=== PATIENT | male | born 1955 | race Caucasian/White ===

== ENCOUNTER → 2019-06-04 16:21 | Outpatient (CLI) | payer BC, SELFPAY ==
[2019-06-04 17:56] LABS: Add Manual Diff / Slide Review NO; Basophils Absolute Auto 0 /uL (0-100); Basophils Percent Auto 0.8 % (0-2); Eosinophils Absolute Auto 100 /uL (0-450); Eosinophils Percent Auto 2.1 % (2-4); Hematocrit 40.3 % (41-53); Hemoglobin 13.5 g/dL (13.5-17.5); Lymphocytes Absolute Auto 2100 /uL (1100-4500); Lymphocytes Percent Auto 37.8 % (25-40); Mean Corpuscular HGB Conc 33.5 % (30-36); Mean Corpuscular Hemoglobin 31.2 PG (26-34); Mean Corpuscular Volume 92.9 fL (80-100); Monocytes Absolute Auto 400 /uL (0-900); Monocytes Percent Auto 6.8 % (3-14); Neutrophils Absolute Auto 2900 /uL (1500-7000); Neutrophils Percent Auto 52.5 % (50-75); Platelet Count 233 X10^3/uL (150-400); Red Blood Cell Count 4.34 X10^6/uL (4.5-5.9); Red Cell Distribution Width 13.7 % (11.6-14.8); White Blood Cell Count 5.5 X10^3/uL (4.5-11.0)
[2019-06-04 18:22] LABS: Alanine Aminotransferase 46 IU/L (21-72); Albumin 4.4 g/dL (3.5-5.0); Albumin Globulin Ratio 1.2 (1.0-2.8); Alkaline Phosphatase 45 U/L (38-126); Aspartate Aminotransferase 70 IU/L (17-59); BUN Creatinine Ratio 26.3 (6-22); Blood Urea Nitrogen 21 mg/dL (9-20); Calcium 9.5 mg/dL (8.4-10.2); Carbon Dioxide 29 mmol/L (22-32); Chloride 103 mmol/L (98-107); Estimated Glomerular Filt Rate > 60.0 mL/min (>60); Globulin 3.7 g/dL (1.7-4.1); Glucose 98 mg/dL (80-110); HEMOLYSIS < 15 (0-50); Potassium 3.6 mmol/L (3.4-5.1); Sodium 140 mmol/L (137-145); Total Protein 8.1 g/dL (6.3-8.2)
[2019-06-06 13:50] LABS: Free Kappa Light Chain 6.9 mg/L (3.3-19.4); Free Kappa/ Lambda Ratio 0.61 (0.26-1.65); Free Lambda 11.4 mg/L (5.7-26.3)
[2019-06-07 12:13] LABS: Abnormal Protein Band 1 0.7 g/dL (NONE DETECTED); Albumin 4.2 g/dL (3.8-4.8); Alpha 1 Globulin 0.2 g/dL (0.2-0.3); Alpha 2 Globulin 0.6 g/dL (0.5-0.9); Beta 1 Globulin 0.4 g/dL (0.4-0.6); Gamma Globulin 1.9 g/dL (0.8-1.7); Protein, Total 7.6 g/dL (6.1-8.1)
== END ==
PROVIDERS: PCP Family Medicine
DX: D47.2 Monoclonal gammopathy (principal)
CPT/HCPCS: 36415; 80053; 82784; 83883; 84155; 84165; 85025; 86334

== ENCOUNTER → 2020-08-14 14:57 | Outpatient (CLI) | payer MEDICARE, OTHER, SELFPAY ==
[2020-08-15 15:50] LABS: COVID19 Sendout Not Detected (Not Detect)
== END ==
PROVIDERS: PCP Family Medicine; Visit Provider Physician Assistant
DX: Z11.59 Encounter for screening for other viral diseases (principal)
CPT/HCPCS: 87635

== ENCOUNTER → 2022-03-03 11:27 | Outpatient (CLI) | payer MEDICARE, OTHER, SELFPAY ==
[2022-03-03 12:20] LABS: COVID19 -Nasal RAPID Negative (Negative)
== END ==
PROVIDERS: PCP Family Medicine; Visit Provider Family Medicine Sleep Medicine
DX: Z20.822 Contact with and (suspected) exposure to COVID-19 (principal)
CPT/HCPCS: 87635; C9803

== ENCOUNTER 2022-03-06 13:17 | Day surgery (SDC) | payer MEDICARE, OTHER, SELFPAY ==
[2022-03-06 13:54] VITALS: BMI 22.8
[2022-03-06 14:14] VITALS: BP 153/90; PULSE 66; RESP 16; TEMP 36.4; O2SAT 99
[2022-03-06] MEDS: SODIUM CHLORIDE 0.9% 1,000 ML 84 ML IV (14:17)
--- NOTE | 2022-03-06 14:27 | PM.HP.1 ---
History of Present Illness History of Present Illness Date Patient Seen: 03/06/22 Time Patient Seen: 14:28 Chief complaint: SDC Narrative: Here for colon cancer screening. Patient History Medical History CIDP (chronic inflammatory demyelinating polyneuropathy) Elevated blood protein Hypertension Family & Social History Social History: household members none Tobacco & Substance use: Smoking Status Never smoker alcohol intake current alcohol intake frequency 0-2 drinks per day Substance Use Type does not use Meds Home Medications and Allergies Home Medications Medication Instructions Recorded Confirmed Type aspirin 81 mg tablet,delayed 81 mg PO DAILY 06/04/19 03/06/22 History release (Aspir-) hydrochlorothiazide 25 mg tablet 25 mg PO DAILY 06/04/19 03/06/22 History immune glob,gamma(IgG) 10 10 g IV QMONTH 06/04/19 03/06/22 History hkea-[id number]-olyh-IgA 0 to 50 mcg/mL IV solution (Gammagard S-D (IgA < 1 mcg/mL)) lisinopril 40 mg tablet 40 mg DAILY 06/04/19 03/06/22 History omeprazole magnesium 20 mg 20 mg DAILY 06/04/19 03/06/22 History tablet,delayed release (Prilosec OTC) amlodipine 10 mg tablet (Norvasc) 10 mg PO DAILY 01/25/22 03/06/22 History Allergies Allergy/AdvReac Type Severity Reaction Status Date / Time No Known Drug Allergies Allergy Verified 03/06/22 13:50 Review of Systems Review of Systems ROS: Yes All systems reviewed with the patient and are negative except as otherwise documented Exam Vital Signs (past 8 hours): - 03/06/22 14:14 Temperature 97.6 F Pulse Rate 66 Respiratory Rate 16 Blood Pressure 153/90 H Pulse Oximetry 99 Oxygen Delivery Method Room Air Const General: cooperative and comfortable Orientation: alert HENMT Head: normocephalic Ears: external ears normal Nose: external nose normal Face and sinus: normal facial exam Mouth: oral mucosae normal Eyes General: appearance normal, both eyes and all related structures Neck Neck: normal visual inspection Chest Chest: normal inspection of the chest Resp Effort & Inspection: normal respiratory effort Cardio Rate: regular rate GI Inspection: normal to inspection Skin General: no rashes or lesions noted and No jaundice Neuro General: patient alert and moves all extremities Cognition: normal cognition Speech: speech normal Extrem General: no pedal edema Psych Appearance: grossly normal Assessment & Plan Assessment & Plan narrative: 66-year-old male reporting for colon cancer screening. Colonoscopy is planned for today. Time Spent With Patient Critical Care time: I spent a total of [] minutes of critical care time on this patient's care today; this time is exclusive of procedural time.
--- NOTE | 2022-03-06 14:29 | PM.PREOP ---
Pre-operative Note COVID-19 COVID-19 status: Negative Result date/Date tested (Pos, Neg/Pending): 03/03/22 Criteria for continued procedure: Possibility delay results in more complex future surgery or treatment Interval Note History & Physical reviewed/Exam performed by Physician: Yes Changes to H&P: No ASA Class (for procedural sedation): II
--- NOTE | 2022-03-06 15:24 | SUR.OPER ---
CECUM AT 1526
--- NOTE | 2022-03-06 15:33 | PM.OP.COLON ---
Operative Date/Time/Diagnoses Date of procedure: 03/06/22 Time of procedure: 15:33 Pre-op diagnosis: Colon cancer screening Post-op diagnosis: same Procedure & Clinicians Study performed: Colonoscopy Same procedure as scheduled: Yes Indications: Colon cancer screening Surgeon: Panda Zapata Procedure Notes SCOAP/Timeout: Done Procedure in detail: After the risks and benefits were explained, written and verbal informed consent was obtained. The patient was brought into the procedure room and placed into the left lateral decubitus position. Please see nurse glass forming crew member notes for sedation details. Digital rectal examination was accomplished. The scope was introduced into the patient and advanced under direct visualization to the cecum as identified by the appendiceal orifice and ileocecal valve. The scope was slowly withdrawn to carefully examine the mucosa for any defects or lesions. Comprehensive imaging was accomplished throughout the rectum including the dentate line. The colon was decompressed, the scope was then removed from the patient who tolerated the procedure well. Bowel prep adequate Adult colonoscope Scope withdrawal time: 6 minutes Sedation minutes: 21 Specimen(s): none sent Complications: none Impression: Patient had a moderately tortuous sigmoid that rendered defecation challenging. No significant polyps mass lesions or inflammatory features identified throughout. Endoscopic diagnosis: Visually normal colonoscopy to cecum Post-procedure Recommendations: Colonoscopy in 10 years Plan for aftercare: Repeat colonoscopy 10 years time sooner should symptoms warrant an earlier exam. Disposition: PACU
[2022-03-06 15:37] VITALS: BP 130/77; PULSE 62; RESP 13; TEMP 36.3; O2SAT 98
[2022-03-06 15:47] VITALS: BP 127/75; PULSE 61; RESP 14; O2SAT 95
[2022-03-06 15:51] VITALS: BP 130/81; PULSE 63; RESP 14; TEMP 36.3; O2SAT 97
[2022-03-06 15:56] VITALS: BP 130/81; PULSE 59; RESP 14; O2SAT 99
== END 2022-03-06 16:08 | disposition home or self-care (01) ==
PROVIDERS: PCP Family Medicine; Referring Provider Internal Medicine Gastroenterology; Visit Provider Internal Medicine Gastroenterology
PROC: 0DJD8ZZ Inspection of Lower Intestinal Tract, Via Natural or Artificial Opening Endoscopic (ICD-10-PCS; CPT 45378; principal; 2022-03-06 14:30)
DX: Z12.11 Encounter for screening for malignant neoplasm of colon (principal); I10 Essential (primary) hypertension; G61.81 Chronic inflammatory demyelinating polyneuritis
CPT/HCPCS: G0121; J2704

== ENCOUNTER → 2023-01-10 10:31 | Outpatient (CLI) | payer MEDICARE, OTHER, SELFPAY ==
[2023-01-10 10:49] LABS: Hematocrit 39.4 % (41-53); Hemoglobin 13.5 g/dL (13.5-17.5); Mean Corpuscular HGB Conc 34.2 % (30-36); Mean Corpuscular Hemoglobin 29.6 PG (26-34); Mean Corpuscular Volume 86.4 fL (80-100); Platelet Count 243 X10^3/uL (150-400); Red Blood Cell Count 4.56 X10^6/uL (4.5-5.9); Red Cell Distribution Width 13.3 % (11.6-14.8); White Blood Cell Count 4.6 X10^3/uL (4.5-11.0)
[2023-01-10 11:02] LABS: Alanine Aminotransferase 37 IU/L (<50); Albumin 4.5 g/dL (3.5-5.0); Alkaline Phosphatase 50 U/L (38-126); Aspartate Aminotransferase 40 IU/L (17-59); BUN Creatinine Ratio 24.4 (6-22); Bilirubin Total 1.2 mg/dL (0.2-1.3); Blood Urea Nitrogen 20 mg/dL (9-20); Calcium 9.6 mg/dL (8.4-10.2); Carbon Dioxide 36 mmol/L (22-32); Chloride 98 mmol/L (98-107); Estimated Glomerular Filt Rate > 60 mL/min (>60); Globulin 4.6 g/dL (1.7-4.1); Glucose 72 mg/dL (80-110); HEMOLYSIS < 15 (0-50); Potassium 3.8 mmol/L (3.4-5.1); Sodium 142 mmol/L (137-145); Total Protein 9.1 g/dL (6.3-8.2)
[2023-01-10 12:19] LABS: TSH w/ Reflex to FT4 1.45 uIU/mL (0.47-4.68)
== END ==
PROVIDERS: PCP Family Medicine; Referring Provider Family Medicine; Visit Provider Family Medicine
DX: D64.9 Anemia, unspecified (principal); I10 Essential (primary) hypertension
CPT/HCPCS: 36415; 80053; 84443; 85027

== ENCOUNTER 2025-10-01 11:00 | Emergency (ER) | payer MEDICARE, OTHER, SELFPAY ==
[2025-10-01] VITALS (31 sets, daily range): BP systolic 96–126; BP diastolic 66–86; PULSE 70–141; RESP 9–21; TEMP 36.7; O2SAT 84–100
--- NOTE | 2025-10-01 11:08 | ED_ITS ---
HPI - Chest Pain
--- NOTE | 2025-10-01 11:08 | ED.CHESTPAIN ---
HPI - Chest Pain General Chief Complaint: Arrhythmia/Palpitations Stated Complaint: Irregular heart beat, Low blood pressure Time Seen by Provider: 10/01/25 11:08 History of Present Illness HPI narrative: 70-year-old gentleman history of CIDP, hypertension, presents with low blood pressure, elevated heart rate Sunday evening for which he has stopped taking the lisinopril but noticed use still having heart palpitations and feeling lightheaded. Denies any chest pain, shortness of breath, leg pain, leg swelling, recent travel, dyspnea on exertion, fever, chills, body aches, cough, sore throat, nausea, vomiting, diarrhea, abdominal pain. Other than what is stated 14 point review system is negative. Related Data Home Medications ?Medication ?Instructions ?Recorded ?Confirmed aspirin 81 mg tablet,delayed 81 mg PO DAILY 06/04/19 03/06/23 release (Aspir-) hydrochlorothiazide 25 mg tablet 25 mg PO DAILY 06/04/19 03/06/23 immune glob,gamma(IgG) 10 90 g IV QMONTH 06/04/19 03/06/23 [id number]-[id number]-IgA 0 to 50 mcg/mL IV solution (Gammagard S-D (IgA < 1 mcg/mL)) lisinopril 40 mg tablet 40 mg DAILY 06/04/19 03/06/23 omeprazole magnesium 20 mg 20 mg DAILY 06/04/19 03/06/23 tablet,delayed release (Prilosec OTC) amlodipine 10 mg tablet (Norvasc) 10 mg PO DAILY 01/25/22 03/06/23 Previous Rx's ?Medication ?Instructions ?Recorded apixaban 5 mg (74 tabs) tablets in See Rx Instructions PO .COMPLEX 10/01/25 a dose pack (FixyaquideaForge DVT-PE Treat #74 ea 30D Start) metoprolol tartrate 25 mg tablet 25 mg PO BID #60 tabs 10/01/25 Allergies Allergy/AdvReac Type Severity Reaction Status Date / Time No Known Drug Allergies Allergy Verified 10/01/25 11:08 Review of Systems Review of Systems ROS Unobtainable: All systems reviewed & are unremarkable except as noted in HPI and below Patient History Medical History CIDP (chronic inflammatory demyelinating polyneuropathy) Elevated blood protein Hypertension Social History household members: none Smoking Status: Unknown if ever smoked alcohol intake: current alcohol intake frequency: 0-2 drinks per day Exam Narrative Exam Narrative: GENERAL: [70] year old patient appears stated age. Well-developed patient, in mild distress. HEAD: Atraumatic. Normocephalic. EYES: Pupils equal round and reactive. Extraocular motions intact. No scleral icterus. No injection or drainage. ENT: Nose without bleeding, purulent drainage. Throat without erythema, tonsillar hypertrophy or exudate. Airway patent. NECK: Trachea midline. Non tender CARDIOVASCULAR: Tachycardia irregularly irregular rate and rhythm without murmurs, gallops, or rubs. RESPIRATORY: Clear to auscultation. Breath sounds equal bilaterally. No wheezes, rales, or rhonchi. GASTROINTESTINAL: Abdomen soft, non-tender, nondistended. EXTREMITIES: No edema or joint tenderness. BACK: Nontender without deformity or crepitance. No flank tenderness. NEURO: AOx3. SKIN: No rash or erythema of visible areas Initial Vital Signs Initial Vital Signs: Vital Signs Temperature 98.1 F 10/01/25 11:00 Pulse Rate 112 H 10/01/25 11:00 Respiratory Rate 18 10/01/25 11:00 Blood Pressure 118/79 10/01/25 11:00 Pulse Oximetry 100 10/01/25 11:00 Oxygen Delivery Method Room Air 10/01/25 11:00 Scores HEART Score Heart Score history: Moderately Suspicious Heart Score EKG: Non-Specific repolarization disturbance Heart Score Age: > or = 65 years old Heart Score risk factors: 1-2 risk factors Heart Score troponin: < or = to normal limit Heart Score Total: 5 Course Orders Ordered: ED Orders 10/01/25 11:11 CT angio chest PE protocol Stat EKG-12 Lead Stat 10/01/25 11:16 Complete Blood Count AUTO DIFF Stat Comprehensive Metabolic Panel Stat Lipase Stat Magnesium Stat NT-proBNP (BNP-Adult 18+) Stat TSH [Thyroid Stimulating Hormone] Stat Troponin I Stat 10/01/25 14:11 EKG-12 Lead Stat 10/01/25 15:04 Troponin I Stat Discontinued Medications Apixaban (Apixaban 5 Mg Tablet) 5 mg PO NOW ONE Stop: 10/01/25 14:57 Last Admin: 10/01/25 15:12 Dose: 5 mg Documented By: GELACIO Aspirin (Aspirin 81 Mg Chew Tab) 324 mg PO NOW ONE Stop: 10/01/25 11:11 Last Admin: 10/01/25 11:24 Dose: 243 mg Documented By: KYLE Diltiazem HCl (Diltiazem 25 Mg/5 Ml Sdv) 25 mg IV NOW ONE Stop: 10/01/25 11:19 Last Admin: 10/01/25 11:24 Dose: 25 mg Documented By: LUPISF Vital Signs Vital signs: Vital Signs - 8 hr 10/01/25 11:00 10/01/25 11:04 10/01/25 11:05 Temperature 98.1 F Pulse Rate 112 H 108 H Respiratory Rate 18 Blood Pressure 118/79 118/79 Pulse Oximetry 100 98 Oxygen Delivery Method Room Air 10/01/25 11:05 10/01/25 11:23 10/01/25 11:23 Temperature Pulse Rate 137 H 136 H Respiratory Rate 20 Blood Pressure 119/81 Pulse Oximetry 99 100 Oxygen Delivery Method 10/01/25 11:24 10/01/25 11:25 10/01/25 11:25 Temperature Pulse Rate 141 H 141 H Respiratory Rate 16 Blood Pressure 119/81 125/86 Pulse Oximetry 100 Oxygen Delivery Method 10/01/25 11:30 10/01/25 11:30 10/01/25 11:35 Temperature Pulse Rate 77 Respiratory Rate 16 Blood Pressure 96/67 106/69 Pulse Oximetry 100 Oxygen Delivery Method 10/01/25 11:35 10/01/25 11:42 10/01/25 11:42 Temperature Pulse Rate 74 77 Respiratory Rate 14 14 Blood Pressure 108/75 Pulse Oximetry 100 100 Oxygen Delivery Method 10/01/25 12:01 10/01/25 12:02 10/01/25 12:02 Temperature Pulse Rate 77 79 Respiratory Rate 17 Blood Pressure 112/68 Pulse Oximetry 84 L 98 Oxygen Delivery Method 10/01/25 12:15 10/01/25 12:15 10/01/25 12:30 Temperature Pulse Rate 70 70 Respiratory Rate 14 14 Blood Pressure 101/70 Pulse Oximetry 99 98 Oxygen Delivery Method 10/01/25 12:30 10/01/25 12:45 10/01/25 12:45 Temperature Pulse Rate 73 Respiratory Rate 12 Blood Pressure 112/75 109/70 Pulse Oximetry 99 Oxygen Delivery Method 10/01/25 13:00 10/01/25 13:00 10/01/25 13:10 Temperature Pulse Rate 78 79 Respiratory Rate 21 18 Blood Pressure 115/75 Pulse Oximetry 97 99 Oxygen Delivery Method 10/01/25 13:10 10/01/25 13:15 10/01/25 13:15 Temperature Pulse Rate 79 Respiratory Rate 17 Blood Pressure 108/66 107/74 Pulse Oximetry 98 Oxygen Delivery Method 10/01/25 13:30 10/01/25 13:30 10/01/25 13:45 Temperature Pulse Rate 78 Respiratory Rate 15 Blood Pressure 110/79 113/82 Pulse Oximetry 99 Oxygen Delivery Method 10/01/25 13:45 10/01/25 14:00 10/01/25 14:00 Temperature Pulse Rate 82 82 Respiratory Rate 14 13 Blood Pressure 102/82 Pulse Oximetry 98 99 Oxygen Delivery Method 10/01/25 14:15 10/01/25 14:15 Temperature Pulse Rate 91 H Respiratory Rate 17 Blood Pressure 107/85 Pulse Oximetry 99 Oxygen Delivery Method MDM - Chest Pain Lab Data 10/01/25 11:16 10/01/25 11:16 Labs: Lab Results 10/01/25 10/01/25 Range/Units 11:16 15:04 WBC 7.2 (4.5-11.0) X10^3/uL RBC 4.53 (4.5-5.9) X10^6/uL Hgb 13.8 (13.5-17.5) g/dL Hct 40.6 L (41-53) % MCV 89.6 (80-100) fL MCH 30.4 (26-34) PG MCHC 33.9 (30-36) % RDW 13.6 (11.6-14.8) % Plt Count 226 (150-400) X10^3/uL Neut % (Auto) 60.8 (50-75) % Lymph % (Auto) 27.7 (25-40) % Barnes % (Auto) 8.2 (3-14) % Eos % (Auto) 2.4 (2-4) % Baso % (Auto) 0.9 (0-2) % Neut # (Auto) 4300 (7602-7714) /uL Lymph # (Auto) 2000 (3510-9357) /uL Barnes # (Auto) 600 (0-900) /uL Eos # (Auto) 200 (0-450) /uL Baso # (Auto) 100 (0-100) /uL Sodium 137 (137-145) mmol/L Potassium 3.6 (3.4-5.1) mmol/L Chloride 100 (98-107) mmol/L Carbon Dioxide 30 (22-32) mmol/L BUN 22 H (9-20) mg/dL Creatinine 0.88 (0.66-1.25) mg/dL Estimated GFR > 60 (>60) mL/min BUN/Creatinine Ratio 25.0 H (6-22) Glucose 103 H (70-99) mg/dL Calcium 9.0 (8.4-10.2) mg/dL Magnesium 1.9 (1.6-2.3) mg/dL Total Bilirubin 1.0 (0.2-1.3) mg/dL AST 47 (17-59) IU/L ALT 47 (<50) IU/L Alkaline Phosphatase 48 (38-126) U/L CK-MB (CK-2) Cancelled Troponin I < 0.012 < 0.012 (0.01-0.034) ng/mL NT-Pro-B Natriuret Pep 2190 H (<125) pg/mL Total Protein 9.4 H (6.3-8.2) g/dL Albumin 4.5 (3.5-5.0) g/dL Globulin 4.9 H (1.7-4.1) g/dL Albumin/Globulin Ratio 0.9 L (1.0-2.8) Lipase 158 (23-300) U/L TSH 1.33 (0.47-4.68) uIU/mL Urine Dip Bedside Urine Glucose Negative Bedside Urine Bilirubin - Negative Bedside Urine Ketone - Negative Urine Specific [place] 1.005 Bedside Urine Occult Blood - Negative Bedside Urine pH 7.5 Bedside Urine Protein - Negative Bedside Urine Urobilinogen - Negative Bedside Urine Nitrite - Negative Bedside Urine Leukocytes - Negative Esterase Imaging Data CT scan - chest: Radiologist's Impression: [address] [id number] [address] Scan Report Signed Patient: Mati Pelaez MR#: [id number] : 1955 Acct:[id number] Age/Sex: 70 / M Date of Service: 10/01/25 Loc: ED Accession Number: [id number] Procedure: CT angio chest PE protocol Ordering Provider: Ashok Delgado D.O. PROCEDURE: CT ANGIO CHEST PE PROTOCOL INDICATIONS: tachycardic/ palpitation TECHNIQUE: After the administration of intravenous contrast, 2 mm thick sections acquired from the pulmonary apices to the posterior costophrenic angles. 3-dimensional maximum intensity projection (MIP) coronal and sagittal reformats were then acquired through the thorax. For radiation dose reduction, the following was used: automated exposure control, adjustment of mA and/or kV according to patient size. COMPARISON: None. FINDINGS: Image quality: Diagnostic. Pulmonary arteries: Pulmonary arteries are normal in size, and demonstrate no intraluminal filling defects to suggest central pulmonary embolism. Lower Neck: No enlarged lymph nodes. Thyroid: No thyroid nodules which require sonographic follow up, per consensus guidelines. Axillae: No enlarged lymph nodes. Chest Wall: Unremarkable. Bones: Unremarkable. Lungs and Pleura: No pneumothorax or pleural effusions. No consolidation or suspicious nodules. Heart: Heart size is normal. No pericardial effusion. Thoracic Vessels: No aortic aneurysm. Mediastinum and Taty: No enlarged lymph nodes. Esophagus: No wall thickening. No hiatal hernia. Upper Abdomen: Visualized upper abdomen solid organs and bowel loops appear normal. IMPRESSION: No pulmonary embolus. No acute cardiopulmonary process. Dictated by: Gilmer Lynos M.D. on 10/01/2025 at 12:06 Approved by: Gilmer Lyons M.D. on 10/01/2025 at 12:0 ECG Data Interpretation: Afib RVR HR 137 NC undetermined QRS [address]-t wave change No previous EKG to compare MDM Narrative Medical decision making narrative: Vital signs, nurse triage note, medication list, previous ER visits, and all imaging studies reviewed. WBC 7.2 hemoglobin 13 point platelet 226 sodium 137 potassium 3.6 chloride 100 CO2 30 and 22 creatinine 0.88 glucose 103 magnesium 1.9 troponin less than 0.012 BNP 2190. Lipase 158 TSH 1.33. CTA showed no PE no acute cardiopulmonary process. WBC 7.2 hemoglobin 13.8 platelets 226 sodium 137 potassium 3.6 chloride 100 CO2 30 BUN 22 creatinine 0.88 glucose 103 magnesium 1.9 troponin less than 0.012 BNP 2190. Patient given diltiazem 25 mg IV x1 and 10mg IV x 1, Eliquis here. Two sets troponin negative. Heart score of 5. Patient was discharged on metoprolol and Eliquis Discharge Plan Departure Patient Disposition: Home Clinical Impression: Atrial fibrillation with rapid ventricular response Instructions: DI for Atrial Fibrillation Activity Restrictions/Additional Instructions: Return with new or worsening symptoms. Follow up with PCP next week. If blood pressure is low stop taking propranolol, lisinopril, and amlodipine but continue on metoprolol as long as blood pressures greater than 100 systolic and diastolic is 70. Prescriptions: New Eliquis DVT-PE Treat 30D Start 5 mg (74 tabs) tablets,dose pack See Rx Instructions .ROUTE .COMPLEX Qty: 74 0RF Rx Instructions: orally per package directions metoprolol tartrate 25 mg tablet 25 mg PO BID Qty: 60 0RF No Action aspirin [Aspir-81] 81 mg Tablet,Delayed Release (Dr/Ec) 81 mg PO DAILY hydrochlorothiazide 25 mg Tablet 25 mg PO DAILY lisinopril 40 mg Tablet 40 mg DAILY omeprazole magnesium [Prilosec OTC] 20 mg Tablet,Delayed Release (Dr/Ec) 20 mg DAILY Gammagard S-D (IgA < 1 mcg/mL) 10 gram Recon Soln 90 g IV QMONTH Patient Comments: 30 GM/300 ML solution 900 ml once every 4 weeks amlodipine [Norvasc] 10 mg Tablet 10 mg PO DAILY Referrals: Zoe Minor ARNP [Primary Care Provider, Family Practice] Stand Alone Forms: Patient Portal/API
--- NOTE | 2025-10-01 11:11 | EKG_ITS ---
[facility]
--- NOTE | 2025-10-01 11:11 | DI.CT.S_ITS ---
PROCEDURE: CT ANGIO CHEST PE PROTOCOL
--- NOTE | 2025-10-01 11:12 | EKG_ITS ---
[facility]
[2025-10-01 11:24] LABS: Add Manual Diff / Slide Review NO; Hematocrit 40.6 % (41-53); Hemoglobin 13.8 g/dL (13.5-17.5); Lymphocytes Absolute Auto 2000 /uL (1100-4500); Mean Corpuscular HGB Conc 33.9 % (30-36); Mean Corpuscular Hemoglobin 30.4 PG (26-34); Mean Corpuscular Volume 89.6 fL (80-100); Platelet Count 226 X10^3/uL (150-400)
[2025-10-01] MEDS: ASPIRIN 81 MG CHEW TAB 324 MG PO (11:24)
[2025-10-01 11:36] LABS: Alanine Aminotransferase 47 IU/L (<50); Albumin 4.5 g/dL (3.5-5.0); Albumin Globulin Ratio 0.9 (1.0-2.8); Alkaline Phosphatase 48 U/L (38-126); Blood Urea Nitrogen 22 mg/dL (9-20); Calcium 9.0 mg/dL (8.4-10.2); Carbon Dioxide 30 mmol/L (22-32); Chloride 100 mmol/L (98-107); Estimated Glomerular Filt Rate > 60 mL/min (>60); Globulin 4.9 g/dL (1.7-4.1); Glucose 103 mg/dL (70-99); HEMOLYSIS 22 (0-50); Lipase 158 U/L (23-300); Magnesium 1.9 mg/dL (1.6-2.3); Potassium 3.6 mmol/L (3.4-5.1); Sodium 137 mmol/L (137-145); Total Protein 9.4 g/dL (6.3-8.2)
[2025-10-01 11:48] LABS: NT-proBNP (BNP-Adult 18+) 2190 pg/mL (<125); Troponin I < 0.012 ng/mL (0.01-0.034)
[2025-10-01 12:28] LABS: Thyroid Stimulating Hormone 1.33 uIU/mL (0.47-4.68)
[2025-10-01] MEDS: APIXABAN 5 MG TABLET PO (15:12)
[2025-10-01 15:41] LABS: Troponin I < 0.012 ng/mL (0.01-0.034)
== END 2025-10-01 16:49 | disposition home or self-care (01) ==
PROVIDERS: Emergency Provider Family Medicine; PCP Registered Nurse
DX: I48.20 Chronic atrial fibrillation, unspecified (principal); Z79.01 Long term (current) use of anticoagulants
CPT/HCPCS: 36415; 71275; 80053; 81003; 83690; 83735; 83880; 84443; 84484; 85025; 93005; 99284; Q9967

== ENCOUNTER → 2025-11-04 13:39 | Outpatient (CLI) | payer MEDICARE, OTHER, SELFPAY ==
--- NOTE | 2025-11-04 13:42 | DI.ECHO.S_ITS ---
[facility] : : [address] : : [place] : : [id number] : : Phone: [phone] Echocardiogram Report + + :Name: CORY GENTILE Study Date: 11/04/2025 Height: 72 in : :[facility] ReadingLocation: Weight: 165 lb : : Gender: Male BSA: 2.0 m2 : :: 1955 Age: 70 yrs BP: 183/100 mmHg: :Reason For Study: Atrial Fib : :Ordering Physician: CATA, : :FAROOQ Performed By: Luiz Santos : :Referring: FAROOQ IVY : + + Interpretation Summary - The left ventricular contractility is normal. Estimated ejection fraction is greater than 60% with no segmental wall motion abnormalities. Moderate concentric LVH. Grade 1 diastolic dysfunction. - The right ventricular contractility is normal. - Mild biatrial enlargement. The right and left ventricular cavities are of normal size. - Mild aortic insufficiency. - Trace to mild mitral regurgitation. - No obvious intracardiac shunts. - No obvious intracardiac masses nor thrombi. - No hemodynamically significant pericardial effusion. - Normal right-sided filling pressures. 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 Conclusion: Normal biventricular systolic function with trace to mild valvular insufficiencies. Procedure: A two-dimensional transthoracic echocardiogram with color flow and Doppler was performed. The study quality was technically adequate. There is no prior echocardiogram noted for this patient. The patient was in normal sinus rhythm during the exam. Left Ventricle: The left ventricle is normal in size. Left ventricular wall thickness is moderately increased. Left ventricular systolic function is normal. The ejection fraction is estimated to be 60-65%. There are no focal wall motion abnormalities. Grade I diastolic dysfunction with normal left atrial pressure. Right Ventricle: The right ventricle is normal in size and function. Atria: The left atrium is mildly dilated. The right atrium is mildly dilated. There is no Doppler evidence for an interatrial shunt. Mitral Valve: The mitral valve leaflets appear to open well. There is no mitral valve stenosis. There is trace mitral regurgitation. Aortic Valve: The aortic valve is trileaflet. The aortic valve opens well. There is no aortic valve stenosis. There is mild aortic regurgitation. Tricuspid Valve: The tricuspid valve leaflets are thin and pliable. There is trace tricuspid regurgitation. Pulmonary artery pressures cannot be estimated because of the lack of a measurable TR jet velocity but the IVC suggests a CVP of around 8 mmHg. Pulmonic Valve: The pulmonic valve is not well seen, but is grossly normal. There is trace pulmonic regurgitation. Great Vessels: Based on patients BSA of 2.0m2, the aortic root in the area of the sinuses of Valsalva with a max diameter of 4.2 cm is with in normal range. Based on patients BSA, the proximal ascending aorta is dilated with a max diameter of 4.5 cm. The pulmonary artery is normal size. The IVC is dilated (diameter is greater than 2.1 cm) yet it collapses greater than 50% with a sniff. This suggests a right atrial pressure of 8 mm Hg. Pericardium/ Pleura There is no pericardial effusion. MMode/2D Measurements & Calculations LVIDd: 5.0 cm LVOT diam: 2.3 cm LVIDs: 3.5 cm Ao root diam: 4.2 cm FS: 31.0 % asc Aorta Diam: 4.5 cm EPSS: 0.74 cm Ao Arch Diam (Prox Trans): 3.1 cm IVSd: 1.4 cm LVPWd: 1.4 cm LV sanders. diameter/BSA (cm/m^2): 2.6 LV sys. diameter/BSA (cm/m^2): 1.8 LA A2 area: 23.8 cm2 RA long axis: 6.2 cm LA A4 area: 23.4 cm2 RA area: 19.7 cm2 LA length (vol): 6.1 cm RA vol: 53.8 ml LA vol: 77.0 ml RA : 27.4 ml/m2 LA vol index: 39.2 ml/m2 IVC diam: 2.3 cm TAPSE: 2.9 cm Doppler Measurements & Calculations Ao V2 max: 153.4 cm/sec LVOT Max Carlitos: 86.7 cm/sec Ao V2 mean: 102.2 cm/sec LV V1 max P.0 mmHg Ao max P.4 mmHg LV V1 VTI: 22.4 cm Ao mean P.9 mmHg EMMY(I,D): 2.9 cm2 Ao V2 VTI: 32.7 cm EMMY(V,D): 2.4 cm2 sev ratio: 0.69 EMMY indexed to BSA (cm^2/m^2): 1.5 AI P1/2t: 782.4 msec AI dec slope: 163.2 cm/sec2 MV E max carlitos: 72.6 cm/sec PA V2 max: 67.6 cm/sec MV A max carlitos: 58.1 cm/sec PA V2 mean: 54.8 cm/sec MV E/A: 1.3 PA mean P.3 mmHg Med Peak E' Carlitos: 3.7 cm/sec PA pr(Accel): 17.3 mmHg E/E' med: 19.7 Lat Peak E' Carlitos: 3.2 cm/sec E/E' lat: 23.0 E/e' average: 21.3 MV dec time: 0.25 sec SV(LVOT): 93.6 ml Qp/Qs (V,Ao): 1.0/10.3 Qp/Qs (V,LVOT): 1.0/1.8 Reading Physician:JOHANN
== END ==
PROVIDERS: PCP Registered Nurse; Referring Provider Registered Nurse; Visit Provider Registered Nurse
DX: I35.1 Nonrheumatic aortic (valve) insufficiency (principal); I48.0 Paroxysmal atrial fibrillation
CPT/HCPCS: 93306